=== PATIENT | male | born 1985 | race Caucasian/White ===

== ENCOUNTER 2022-02-08 05:27 | Emergency (ER) | payer OTHER ==
[~2022-02-08 05:27] MED LIST: CLARITIN10 MG PO; IBUPROFEN800 MG PO; NORCO 5-325 TA1 EACH PO; PAXIL40 MG PO; PERCOCET 5/325 T1 EA PO
[2022-02-08] MEDS ORDERED: KENALOG 0.5% CR15 GM EXT (07:22)
[2022-02-08] MEDS ORDERED: IBUPROFEN600 MG PO (07:22)
== END 2022-02-08 08:25 | disposition home or self-care (01) ==
LOC: ER1 05:27
DX: L55.0 Sunburn of first degree (principal); R21 Rash and other nonspecific skin eruption; F17.210 Nicotine dependence, cigarettes, uncomplicated
CPT/HCPCS: 99282